=== PATIENT | male | born 1980 | race Asian ===

== ENCOUNTER → 2023-03-19 08:44 | Outpatient (CLI) | payer OTHER, SELFPAY ==
--- NOTE | 2023-03-19 | DI.MRI.S_ITS ---
PROCEDURE: MR LUMBAR SPINE WO CON INDICATIONS: Other intervertebral disc degeneration, lumbar region TECHNIQUE: Noncontrast sagittal T1 spin echo and T2 fast echo, sagittal STIR, and T2 fast spin echo through the lumbar spine. In cases with scoliosis, additional coronal T2 fast spin echo may be performed. COMPARISON: None. FINDINGS: Image quality: Excellent. Alignment and Curvature: There is normal bony alignment. Bone Marrow: Marrow is of normal overall signal. No acute vertebral body compression fractures. Spinal Cord: Conus medullaris terminates at the L1 level. Visualized cord demonstrates normal signal and size. Paraspinous Soft Tissues: No paravertebral masses. This patient has transitional lumbar anatomy. For the purposes of this examination, the level with the last visualized pair of ribs is considered to be T12. By this numbering scheme, there is a transitional rudimentary disc at the S1-S2 level. T12-L1: Normal appearance. L1-L2: Normal appearance. L2-L3: Normal appearance. L3-L4: Normal appearance. L4-L5: No significant abnormality is seen. L5-S1: The disc height is well-preserved. Loss of disc signal is seen at this level. Minimal to mild disc bulge is seen. There is a mild central disc protrusion. There is a focal annular fissure seen posteriorly. Mild facet joint hypertrophy is seen. Mild bilateral neural foraminal narrowing is seen. No central canal narrowing is seen. S1-S2: A transitional, rudimentary disc is seen. No neural foraminal narrowing or central canal narrowing can be seen. IMPRESSION: Focal L5-S1 degenerative change is seen, including an annular fissure. There is transitional lumbar anatomy, with a transitional disc at S1-S2. Dictated by: Jean-Paul Cordova M.D. on 03/19/2023 at 9:47 Approved by: Jean-Paul Cordova M.D. on 03/19/2023 at 9:50
== END ==
PROVIDERS: Referring Provider Physical Medicine & Rehabilitation; Visit Provider Physical Medicine & Rehabilitation
DX: M51.36 Other intervertebral disc degeneration, lumbar region (principal); M51.87 Other intervertebral disc disorders, lumbosacral region; Q76.49 Other congenital malformations of spine, not associated with scoliosis
CPT/HCPCS: 72148

== ENCOUNTER → 2023-05-12 16:58 | Outpatient (CLI) | payer OTHER, SELFPAY ==
--- NOTE | 2023-05-12 17:01 | DI.MRI.S_ITS ---
PROCEDURE: MR CERVICAL SPINE WO CON INDICATIONS: neck pain TECHNIQUE: Noncontrast sagittal T1 spin echo and T2 fast spin echo, sagittal STIR, foraminal oblique sagittal T2 fast spin echo, and axial gradient echo or T2 fast spin echo through the cervical spine. COMPARISON: None. FINDINGS: Image quality: Excellent. Alignment and Curvature: There is normal bony alignment. Bone Marrow: Marrow demonstrates normal overall signal. Spinal Cord: Visualized spinal cord has normal size and signal. No cerebellar tonsillar herniation. Paraspinous Soft Tissues: No paravertebral masses. Prevertebral soft tissues are normal in thickness. C2-C3: No disc bulge, spinal stenosis or foraminal narrowing. C3-C4: Minimal disc bulge without spinal minimal right foraminal narrowing. C4-C5: Trace disc bulge, without spinal stenosis or foraminal narrowing. C5-C6: No disc bulge, spinal stenosis or foraminal narrowing. C6-C7: No disc bulge, spinal stenosis or foraminal narrowing. C7-T1: No disc bulge or spinal stenosis. Mild bilateral foraminal narrowing. IMPRESSION: Early scattered degenerative change. Dictated by: Heather Jarvis M.D. on 05/13/2023 at 15:19 Approved by: Heather Jarvis M.D. on 05/13/2023 at 15:21
== END ==
PROVIDERS: Referring Provider Physical Medicine & Rehabilitation; Visit Provider Physical Medicine & Rehabilitation
DX: M54.2 Cervicalgia (principal); M89.9 Disorder of bone, unspecified
CPT/HCPCS: 72141

== ENCOUNTER → 2023-09-02 19:01 | Outpatient (CLI) | payer OTHER, SELFPAY ==
--- NOTE | 2023-09-02 | DI.MRI.S_ITS ---
PROCEDURE: MR SHOULDER RT WO CON INDICATIONS: Tendinitis of right rotator cuff TECHNIQUE: Noncontrast oblique coronal T2 fast spin echo with fat saturation, oblique sagittal T1 spin echo and T2 fast spin echo with fat saturation, axial T1 spin echo and T2 fast spin echo with fat saturation through the shoulder. COMPARISON: [facility], CR, XR SHOULDER 2+ VIEWS RIGHT, 08/21/2023, 16:29. FINDINGS: Image quality: Excellent. Rotator cuff: Low-grade articular and bursal surface partial thickness tear involving distal supraspinatus at its insertion on the humeral head is seen extending to musculotendinous junction. Distal infraspinatus tendinosis is noted. The subscapularis tendon is intact. No full-thickness rotator cuff tendon rupture. Sagittal images demonstrate no significant rotator cuff muscle atrophy. Bones and bursae: No bone marrow contusions or fractures. Mild acromioclavicular joint osteoarthritic changes are seen with joint space narrowing and downward osteophyte formation depressing on musculotendinous junction of supraspinatus. The acromion demonstrates conventional anatomy, without an os acromiale. Small amount of subacromial subdeltoid bursal fluid is seen, no gross loose bodies. Capsule and soft tissues: Labrum is grossly intact. The long head of the biceps tendon demonstrates normal location and morphology. The rotator interval appears normal, without fibrosis. The coracohumeral ligament is normal in thickness. IMPRESSION: 1. Low-grade articular and bursal surface partial thickness tear involving distal supraspinatus extending to musculotendinous junction. Distal infraspinatus tendinosis. No full-thickness rotator cuff tendon rupture. 2. Mild acromioclavicular joint osteoarthritis. No fracture or dislocation. Small amount of subacromial subdeltoid bursal fluid, no gross loose bodies. 3. No evidence of focal labral tear. Dictated by: Jarett Mina M.D. on 09/03/2023 at 9:03 Approved by: Jarett Mina M.D. on 09/03/2023 at 9:08
== END ==
LOC: MRI 19:02
PROVIDERS: Referring Provider Physical Medicine & Rehabilitation; Visit Provider Physical Medicine & Rehabilitation
DX: M75.111 Incomplete rotator cuff tear or rupture of right shoulder, not specified as traumatic (principal); M19.011 Primary osteoarthritis, right shoulder; M75.81 Other shoulder lesions, right shoulder
CPT/HCPCS: 73221

== ENCOUNTER → 2025-05-09 18:52 | Outpatient (CLI) | payer OTHER, SELFPAY ==
--- NOTE | 2025-05-09 18:57 | DI.MRI.S_ITS ---
PROCEDURE: MR SHOULDER RT WO CON INDICATIONS: Other shoulder lesions, right shoulder TECHNIQUE: Noncontrast oblique coronal T2 fast spin echo with fat saturation, oblique sagittal T1 spin echo and T2 fast spin echo with fat saturation, axial T1 spin echo and T2 fast spin echo with fat saturation through the shoulder. COMPARISON: [facility], MR, MR SHOULDER RT WO CON, 09/02/2023, 19:24. FINDINGS: Image quality: Excellent. Rotator cuff: Low-grade partial bursal sided tearing of the distal supraspinatus tendon appears unchanged. Low-grade partial articular sided tearing at the distal infraspinatus tendon insertion appears new when compared to the prior exam from 09/02/2023. Teres minor and subscapularis tendons are intact. The rotator cuff musculature is normal in bulk. Bones and bursae: No acute trabecular bone injury or fracture. Small chronic traction cystic changes at the posterior superior humeral head. No focal glenohumeral cartilage defect. Mild degenerative changes of the acromioclavicular joint with small marginal osteophytes. Trace fluid in the subacromial/subdeltoid bursa. No significant glenohumeral effusion. Capsule and soft tissues: Curvilinear [id number] signal at the superior labrum is most likely normal variant sublabral sulcus rather than a labral tear. No acute displaced labral tear is seen. Proximal biceps long head tendon is intact. Normal fat signal in the rotator interval. Glenohumeral ligaments are grossly intact. IMPRESSION: 1. Focal low-grade partial articular sided tearing of the infraspinatus tendon at the distal insertion appears new when compared to the prior MR from 09/02/2023. 2. Low-grade partial bursal sided tearing of the supraspinatus tendon at the distal insertion and critical zone does not appear significantly changed. 3. Mild acromioclavicular joint osteoarthrosis Approved by: Geovany Guan M.D. on 05/10/2025 at 8:21
== END ==
LOC: MRI 18:55
PROVIDERS: PCP Family Medicine; Referring Provider Physical Medicine & Rehabilitation; Visit Provider Physical Medicine & Rehabilitation
DX: M75.81 Other shoulder lesions, right shoulder (principal); M75.111 Incomplete rotator cuff tear or rupture of right shoulder, not specified as traumatic; M19.011 Primary osteoarthritis, right shoulder
CPT/HCPCS: 73221

== ENCOUNTER → 2025-05-31 19:49 | Outpatient (CLI) | payer OTHER, SELFPAY ==
--- NOTE | 2025-05-31 19:52 | DI.MRI.S_ITS ---
PROCEDURE: MR CERVICAL SPINE WO CON INDICATIONS: neck pain TECHNIQUE: Noncontrast sagittal T1 spin echo and T2 fast spin echo, sagittal STIR, foraminal oblique sagittal T2 fast spin echo, and axial gradient echo or T2 fast spin echo through the cervical spine. COMPARISON: [facility], MR, MR CERVICAL SPINE WO CON, 05/12/2023, 17:42. FINDINGS: Image quality: Excellent. Alignment and Curvature: Mild cervical straightening. Bone Marrow: Marrow demonstrates normal overall signal. Spinal Cord: Visualized spinal cord has normal size and signal. No cerebellar tonsillar herniation. Paraspinous Soft Tissues: No paravertebral masses. Prevertebral soft tissues are normal in thickness. C2-C3: Minimal disc bulge without spinal stenosis. Slight right foraminal narrowing. Overall, minimal interval progression. C3-C4: Minimal disc bulge without spinal stenosis. Minimal right foraminal narrowing. No significant interval change. C4-C5: Minimal disc bulge without spinal stenosis or foraminal narrowing. No interval change. C5-C6: Trace disc bulge without spinal stenosis. No foraminal narrowing. Minimal interval progression. C6-C7: No disc bulge, spinal stenosis or foraminal narrowing. No interval change. C7-T1: No disc bulge, spinal stenosis or foraminal narrowing. No interval change. IMPRESSION: Minimal to mild scattered degenerative changes overall relatively stable with slight interval progression of right foraminal narrowing at C2-3 as above. Dictated by: Heather Jarvis M.D. on 06/01/2025 at 10:06 Approved by: Heather Jarvis M.D. on 06/01/2025 at 10:10
== END ==
PROVIDERS: PCP Family Medicine; Referring Provider Orthopaedic Surgery; Visit Provider Orthopaedic Surgery
DX: M54.12 Radiculopathy, cervical region (principal)
CPT/HCPCS: 72141